=== PATIENT | male | born 1930 | race Hispanic/Latino ===

== ENCOUNTER 2018-12-01 17:44 | Emergency (ER) | payer MEDICARE ==
[~2018-12-01 17:44] MED LIST: ACET-2743 PO; ALBU8.5H8 IH; CILO100T PO; LEVO200T10 PO; LORA10TA7 PO; LORA1TAB3 PO; SIME125C92 PO; TAMS0.4C32 PO; TUMS PO
[2018-12-01 18:07] LABS: APPEARANCE,URINE Clear (CLEAR); BILIRUBIN,URINE Negative (NEGATIVE); COLOR,URINE Yellow (YELLOW); GLUCOSE, URINE (UA) >=1000 mg/dL (NEGATIVE); KETONES,URINE 15 mg/dL (NEGATIVE); LEUKOCYTE ESTERASE ,URINE Negative (NEGATIVE); NITRATE,URINE Negative (NEGATIVE); OCCULT BLOOD,URINE Trace (NEGATIVE); PROTEIN,URINE Negative (NEGATIVE); UROBILINOGEN,URINE 0.2 mg/dL (0.2-1.0)
[2018-12-01 18:11] LABS: BASOPHILS % (AUTO) 0.3 % (0.0-5.0); EOSINOPHILS % (AUTO) 1.1 % (0.0-8.0); HEMATOCRIT 41.5 % (42-54); LYMPHOCYTES % (AUTO) 17.2 % (21.0-51.0); MEAN CORPUSCULAR HEMOGLOBIN 25.4 pg (27.0-33.0); MEAN CORPUSCULAR HGB CONC 32.3 g/dL (32.0-36.0); MEAN CORPUSCULAR VOLUME 78.5 fL (79-99); MONOCYTES % (AUTO) 6.3 % (3.0-13.0); NEUTROPHILS % (AUTO) 75.1 % (40.0-77.0); PLATELET COUNT (AUTO) 266 K/uL (130-400); RED BLOOD CELL COUNT(AUTO) 5.28 MIL/uL (4.50-6.20); RED CELL DISTRIBUTION WIDTH 15.9 % (11.0-15.5); WHITE BLOOD COUNT (AUTO) 9.7 K/uL (4.8-10.8)
[2018-12-01 18:18] LABS: CARBON DIOXIDE 28 mmol/L (21-32); CHLORIDE 102 mmol/L (101-111); CREATININE 0.8 mg/dL (0.5-1.5); GLOMERULAR FILTR. RATE CALC 97 mL/min (>60); GLUCOSE,RANDOM 187 mg/dL (70-105); POTASSIUM 3.4 mmol/L (3.5-5.1); SODIUM SERUM 140 mmol/L (136-145); UREA NITROGEN, BLOOD 20 mg/dL (7-18)
[2018-12-01 18:21] LABS: YEAST,URINE BUDDING Moderate /HPF (None Seen)
[2018-12-01 18:22] LABS: SQUAMOUS EPITHELIAL CELL,UR 0-2 /HPF (0-2)
[2018-12-01 18:23] LABS: ALANINE AMINOTRANSFERASE 15 U/L (12-78); ALBUMIN 3.5 g/dL (3.5-5.0); ASPARTATE AMINOTRANSFERASE 20 U/L (10-37); BILIRUBIN,DIRECT < 0.1 mg/dL (0.0-0.3); BILIRUBIN,TOTAL 0.2 mg/dL (0.2-1.0); LIPASE 141 U/L (114-286); TOTAL PROTEIN, SERUM 7.1 g/dL (6.0-8.3)
[2018-12-01 18:24] LABS: BACTERIA,URINE Few /HPF (None Seen)
[2018-12-01 18:25] LABS: MUCUS,URINE Rare LPF (None Seen)
[2018-12-01] MEDS ORDERED: LEVOFLOXACIN 500 MG/D5W 100 ML 100 ML ONE (19:35)
[2018-12-01] MEDS ORDERED: SODIUM CHLORIDE 0.9% 1000ML 1,000 ML IV ONE (19:35)
[2018-12-01] MEDS ORDERED: ONDANSETRON HCL 4 MG/2 ML VIAL ONE (20:25)
== END 2018-12-01 21:38 | disposition home or self-care (01) ==
LOC: EDH 17:44
DX: R30.0 Dysuria (principal); R35.0 Frequency of micturition; R33.9 Retention of urine, unspecified; E07.9 Disorder of thyroid, unspecified; E78.5 Hyperlipidemia, unspecified; E11.9 Type 2 diabetes mellitus without complications; Z87.891 Personal history of nicotine dependence; Z88.1 Allergy status to other antibiotic agents
CPT/HCPCS: 36415; 76770; 80048; 80076; 81001; 83690; 85025; 96365; 96375; 99283; J1956; J2405; J7030

== ENCOUNTER 2019-01-04 08:00 | Day surgery (SDC) | payer MEDICARE ==
[2019-01-04 08:15] VITALS: BP 88/43
[2019-01-04] MEDS ORDERED: SODIUM CHLORIDE 0.9% 1000ML 1,000 ML IV ONE (08:24)
[2019-01-04 08:46] LABS: INR 1.03 (0.85-1.15); PARTIAL THROMBOPLASTIN TIME 30.3 SEC (26.3-35.5); PROTHROMBIN TIME 10.8 SEC (9.6-11.6)
[2019-01-04] MEDS ORDERED: FENTANYL CITRATE PF 50 MCG/1 ML 2ML VIAL ONE (10:55)
[2019-01-04] MEDS ORDERED: LIDOCAINE HCL 1% 20 ML VIAL ONE (10:55)
[2019-01-04] MEDS ORDERED: MIDAZOLAM HCL 1 MG/ML 2ML VIAL ONE (10:56)
[2019-01-04 11:45] VITALS: BP 113/67
--- NOTE | 2019-01-04 11:45 | NUR ---
CT GD RT LUNG BX PATIENT SCHEDULED FOR LT LUNG BX. IMAGES REVIEWED BY DR Best GO AND PROCEDURE DISCUSSED WITH DR Bar MUSTAFA. BIOPSY SITE CHANGED TO RT SIDED LUNG BIOPSY AND APPROVED BY DR Bar MUSTAFA. PROCEDURE PERFORMED BY DR Best GO. PUNCTURE SITE RT POSTERIOR BACK AND PATIENT TOLERATED PROCEDURE WELL. UNABLE TO OBTAIN SPECIMENS AFTER THREE ATTEMPTS. THE PATIENT'S BREATHING PATTERN MADE IT DIFFICULT TO PERFORM PROCEDURE. END OF PROCEDURE AT 1130. BIOPSY NEEDLE REMOVED AND DRESSING APPLIED. NO BLEEDING NOTED. REPORT GIVEN TO Best SHEN RN AND PATIENT TRANSPORTED TO [facility] PATIENT AT 1145. AAO X3 WITH NO C/O PAIN. DR Bar MUSTAFA NOTIED ABUT PROCEDURE OUTCOME BY DR Best GO.
[2019-01-04 12:15] VITALS: BP 91/51
[2019-01-04 12:45] VITALS: BP 115/54
[2019-01-04 13:15] VITALS: BP 105/59
== END 2019-01-04 13:20 | disposition home or self-care (01) ==
LOC: EDSTATUS 08:00 → DAH 08:00
PROVIDERS: ATTEND Internal Medicine Hematology & Oncology
DX: R22.43 Localized swelling, mass and lump, lower limb, bilateral (principal); Z85.850 Personal history of malignant neoplasm of thyroid; Z85.51 Personal history of malignant neoplasm of bladder; N40.1 Benign prostatic hyperplasia with lower urinary tract symptoms; E11.42 Type 2 diabetes mellitus with diabetic polyneuropathy; B96.81 Helicobacter pylori [H. pylori] as the cause of diseases classified elsewhere; Z79.899 Other long term (current) drug therapy; Z80.8 Family history of malignant neoplasm of other organs or systems; Z79.01 Long term (current) use of anticoagulants
CPT/HCPCS: 32405; 36415; 71045; 77012; 82948; 85610; 85730; A4606; J2250; J3010; J7030; 99152

== ENCOUNTER → 2019-07-17 | Outpatient (CLI) | payer MEDICARE | END | disposition home or self-care (01) | LOC: RAH 15:14 | PROVIDERS: ATTEND Internal Medicine Hematology & Oncology | DX: N20.0 Calculus of kidney (principal); N28.89 Other specified disorders of kidney and ureter | CPT/HCPCS: 76770 ==

== ENCOUNTER 2019-11-21 11:50 | Emergency (ER) | payer MEDICARE ==
[~2019-11-21 11:50] MED LIST changes: +BACL20TA PO; +ESOM20CA39 PO; +GUAI-487 PO; -LORA1TAB3 PO; +LORA2ORA5 PO; +MIDO2.5T PO; +MIRT-72 PO; +NPH,100V11 SQ
[2019-11-21] MEDS ORDERED: SODIUM CHLORIDE 0.9% 1000ML 1,000 ML IV ONE (12:30)
[2019-11-21] MEDS ORDERED: METHYLPREDNISOLONE SOD SUCC 125MG/2ML VIAL ONE (12:32)
[2019-11-21] MEDS ORDERED: METOCLOPRAMIDE 10 MG/2 ML VIAL ONE (12:32)
[2019-11-21 12:40] LABS: BASOPHILS % (AUTO) 0.4 % (0.0-5.0); EOSINOPHILS % (AUTO) 3.2 % (0.0-8.0); HEMATOCRIT 40.5 % (42-54); MEAN CORPUSCULAR HEMOGLOBIN 25.7 pg (27.0-33.0); MEAN CORPUSCULAR HGB CONC 31.1 g/dL (32.0-36.0); MEAN CORPUSCULAR VOLUME 82.5 fL (79-99); MONOCYTES % (AUTO) 6.4 % (3.0-13.0); NEUTROPHILS % (AUTO) 67.9 % (40.0-77.0); PLATELET COUNT (AUTO) 292 K/uL (130-400); RED BLOOD CELL COUNT(AUTO) 4.91 MIL/uL (4.50-6.20); RED CELL DISTRIBUTION WIDTH 15.5 % (11.0-15.5); WHITE BLOOD COUNT (AUTO) 6.9 K/uL (4.8-10.8)
[2019-11-21 12:52] LABS: CREATININE 0.9 mg/dL (0.5-1.5); POTASSIUM 3.6 mmol/L (3.5-5.1)
== END 2019-11-21 14:33 | disposition home or self-care (01) ==
LOC: EDH 11:50
DX: M54.81 Occipital neuralgia (principal); E11.9 Type 2 diabetes mellitus without complications; E78.5 Hyperlipidemia, unspecified; Z90.49 Acquired absence of other specified parts of digestive tract; Z88.1 Allergy status to other antibiotic agents; Z87.891 Personal history of nicotine dependence
CPT/HCPCS: 36415; 70450; 80048; 85025; 96374; 96375; 99285; J2765; J2930; J7030

== ENCOUNTER 2020-01-14 20:13 | Observation (INO) | payer MEDICARE ==
[~2020-01-14] VITALS: Ht 167 cm; Wt 79.4 kg
[2020-01-14 20:38] LABS: BASOPHILS % (AUTO) 0.5 % (0.0-5.0); EOSINOPHILS % (AUTO) 1.2 % (0.0-8.0); HEMATOCRIT 41.6 % (42-54); LYMPHOCYTES % (AUTO) 18.7 % (21.0-51.0); MEAN CORPUSCULAR HEMOGLOBIN 25.1 pg (27.0-33.0); MEAN CORPUSCULAR HGB CONC 31.5 g/dL (32.0-36.0); MEAN CORPUSCULAR VOLUME 79.8 fL (79-99); MONOCYTES % (AUTO) 9.1 % (3.0-13.0); NEUTROPHILS % (AUTO) 70.4 % (40.0-77.0); PLATELET COUNT (AUTO) 235 K/uL (130-400); RED BLOOD CELL COUNT(AUTO) 5.21 MIL/uL (4.50-6.20); RED CELL DISTRIBUTION WIDTH 14.8 % (11.0-15.5); WHITE BLOOD COUNT (AUTO) 7.8 K/uL (4.8-10.8)
[2020-01-14 20:44] LABS: CREATININE 0.8 mg/dL (0.5-1.5); POTASSIUM 3.1 mmol/L (3.5-5.1)
[2020-01-14 20:49] LABS: ALBUMIN 3.7 g/dL (3.5-5.0); BILIRUBIN,TOTAL 0.3 mg/dL (0.2-1.0); TOTAL PROTEIN, SERUM 7.7 g/dL (6.0-8.3)
[2020-01-14] MEDS ORDERED: IPRATROPIUM/ALBUTEROL SULFATE 3 ML SOLUTION IH ONE (21:13)
[2020-01-14 21:26] LABS: APPEARANCE,URINE Clear (CLEAR); BILIRUBIN,URINE Negative (NEGATIVE); COLOR,URINE Yellow (YELLOW); GLUCOSE, URINE (UA) Negative (NEGATIVE); KETONES,URINE Trace mg/dL (NEGATIVE); LEUKOCYTE ESTERASE ,URINE Negative (NEGATIVE); NITRATE,URINE Negative (NEGATIVE); OCCULT BLOOD,URINE Negative (NEGATIVE); PROTEIN,URINE Negative (NEGATIVE); UROBILINOGEN,URINE 0.2 mg/dL (0.2-1.0)
[2020-01-14] MEDS ORDERED: ONDANSETRON 4 MG TABLET ONE (23:42)
[2020-01-14] MEDS ORDERED: MAG HYDROX/AL HYDROX/SIMETH ES 30 ML SUSP UDCUP ONE (23:42)
[2020-01-14] MEDS ORDERED: LIDOCAINE HCL 2% VISCOUS 15 ML UDCUP ONE (23:42)
[2020-01-15] MEDS ORDERED: POTASSIUM BICARB/CIT AC 25 MEQ TABLET.EFF ONE (01:04)
[2020-01-15] MEDS ORDERED: ONDANSETRON HCL 4 MG/2 ML VIAL IVP PRN (06:45)
[2020-01-15] MEDS ORDERED: MORPHINE SULFATE 2 MG/ML 1ML SYG ONE (08:04)
[2020-01-15] MEDS ORDERED: SODIUM CHLORIDE 0.9% 1000ML 1,000 ML IV ONE (08:07)
--- NOTE | 2020-01-15 08:53 | NUR ---
HAD LARYNGEAL SURGERY USES A DEVICE TO SPEAK Addendum: 01/15/20 at 0906 by BERTHA MOREIRA RN RN Amended: Links added.
--- NOTE | 2020-01-15 08:56 | NUR ---
HX OF BLADDER AND LUNG CA AND LARYNGEAL Addendum: 01/15/20 at 0906 by BERTHA MOREIRA RN RN Amended: Links added.
[2020-01-15] MEDS: PANTOPRAZOLE 40 MG/VIAL IVP SCH (09:00)
[2020-01-15] MEDS ORDERED: VITA1CAP85 PO (09:16)
[2020-01-15] MEDS: SODIUM CHLORIDE 0.9% 1000ML 1,000 ML IV SCH (18:11)
[2020-01-15 20:00] VITALS: BP 151/92
[2020-01-15] MEDS ORDERED: LIDOCAINE HCL-MPF 1% 2ML VIAL IV PRN (21:00)
[2020-01-15] MEDS: POTASSIUM CHLORIDE 20MEQ/100ML 100 ML IV PRN (22:49)
[2020-01-16] VITALS: BP 153/87
[2020-01-16] MEDS: POTASSIUM CHLORIDE 20MEQ/100ML 100 ML IV PRN ×2 (02:08→06:17)
[2020-01-16 04:00] VITALS: BP 143/74
[2020-01-16 04:26] LABS: APPEARANCE,URINE Clear (CLEAR); BILIRUBIN,URINE Negative (NEGATIVE); COLOR,URINE Yellow (YELLOW); GLUCOSE, URINE (UA) Negative (NEGATIVE); KETONES,URINE 15 mg/dL (NEGATIVE); LEUKOCYTE ESTERASE ,URINE Negative (NEGATIVE); NITRATE,URINE Negative (NEGATIVE); OCCULT BLOOD,URINE Negative (NEGATIVE); PH,URINE 7.5 (5.0-8.0); PROTEIN,URINE Negative (NEGATIVE); UROBILINOGEN,URINE 0.2 mg/dL (0.2-1.0)
[2020-01-16] MEDS: MORPHINE SULFATE 2 MG/ML 1ML SYG IVP PRN ×2 (05:10→10:07)
[2020-01-16] MEDS: SODIUM CHLORIDE 0.9% 1000ML 1,000 ML IV SCH (05:13)
[2020-01-16 06:14] LABS: HEMATOCRIT 41.3 % (42-54); MEAN CORPUSCULAR HEMOGLOBIN 25.1 pg (27.0-33.0); PLATELET COUNT (AUTO) 211 K/uL (130-400); WHITE BLOOD COUNT (AUTO) 8.6 K/uL (4.8-10.8)
[2020-01-16 06:21] LABS: ALBUMIN 3.2 g/dL (3.5-5.0); BILIRUBIN,TOTAL 0.5 mg/dL (0.2-1.0); CREATININE 0.7 mg/dL (0.5-1.5); POTASSIUM 3.7 mmol/L (3.5-5.1); TOTAL PROTEIN, SERUM 6.9 g/dL (6.0-8.3)
[2020-01-16 08:00] VITALS: BP 102/68
[2020-01-16 08:23] LABS: EOSINOPHILS % (MANUAL) 1 % (1-6); LYMPHOCYTES % (MANUAL) 17 % (22-44); MAN.DIFF COMMENT-IMPRESSION MANUAL DIFFERENTIAL; MONOCYTES % (MANUAL) 3 % (2-9); PLATELET MORPHOLOGY COMMENT ADEQUATE; SEGMENTED NEUTROPHILS % 79 % (40-70)
[2020-01-16] MEDS: PANTOPRAZOLE 40 MG/VIAL IVP SCH (10:02)
[2020-01-16 12:00] VITALS: BP 134/75
== END 2020-01-16 17:35 | disposition home or self-care (01) ==
LOC: EDH 20:13 → EDHIP 01-15 04:48 → 3BH 01-15 15:48
PROVIDERS: ADMIT Internal Medicine Hematology & Oncology; ATTEND Internal Medicine Hematology & Oncology
DX: K80.20 Calculus of gallbladder without cholecystitis without obstruction (principal); K59.00 Constipation, unspecified; E11.42 Type 2 diabetes mellitus with diabetic polyneuropathy; E78.5 Hyperlipidemia, unspecified; E89.0 Postprocedural hypothyroidism; Z85.118 Personal history of other malignant neoplasm of bronchus and lung; Z85.51 Personal history of malignant neoplasm of bladder; Z85.850 Personal history of malignant neoplasm of thyroid
CPT/HCPCS: 36415 ×3; 71045; 76700; 78226; 80053 ×2; 81003 ×2; 82550; 82948 ×4; 83690; 83735; 83880; 84484; 85025 ×2; 87088; 87804 ×2; 93005; 94640; 96374; 96375; 96376; 99285; A9537; C9113 ×2; G0378 ×21; J3480 ×2; J3490; J7030; Q0162

== ENCOUNTER → 2020-11-27 | Outpatient (CLI) | payer MEDICARE ==
[~2020-11-27] MED LIST changes: +SIME-12 PO; -SIME125C92 PO; +VITA1CAP85 PO
== END | disposition home or self-care (01) ==
LOC: RAH 10:11
PROVIDERS: ATTEND Otolaryngology Plastic Surgery within the Head & Neck
DX: R13.10 Dysphagia, unspecified (principal); K21.9 Gastro-esophageal reflux disease without esophagitis
CPT/HCPCS: 74230; 92611

== ENCOUNTER 2020-12-03 06:38 | Day surgery (SDC) | payer MEDICARE ==
[~2020-12-03 06:38] MED LIST changes: +SODIUM CHLORIDE 0.9% 1000ML 1,000 ML IV ONE
[2020-12-03 07:35] VITALS: BP 131/61
[2020-12-03] MEDS ORDERED: URSO300C4 PO (08:09)
[2020-12-03] MEDS ORDERED: ESOM20CA39 PO (08:09)
[2020-12-03] MEDS ORDERED: PROPOFOL 10 MG/ML 20ML VIAL IV ONE (09:11)
[2020-12-03 10:15] VITALS: BP 101/46
[2020-12-03 10:20] VITALS: BP 103/47
[2020-12-03 10:25] VITALS: BP 108/53
[2020-12-03 10:30] VITALS: BP 118/55
[2020-12-03 11:00] VITALS: BP 107/50
== END 2020-12-03 11:00 | disposition home or self-care (01) ==
LOC: DAH 06:38 → ENDO 06:38
PROVIDERS: ATTEND Internal Medicine Gastroenterology
DX: R10.13 Epigastric pain (principal); R13.10 Dysphagia, unspecified; K29.50 Unspecified chronic gastritis without bleeding; K22.8 Other specified diseases of esophagus; R63.3 Feeding difficulties; K21.9 Gastro-esophageal reflux disease without esophagitis; N40.0 Benign prostatic hyperplasia without lower urinary tract symptoms; E11.9 Type 2 diabetes mellitus without complications; I45.10 Unspecified right bundle-branch block; Z85.850 Personal history of malignant neoplasm of thyroid; Z90.89 Acquired absence of other organs; Z98.890 Other specified postprocedural states; Z20.828 Contact with and (suspected) exposure to other viral communicable diseases; Z79.899 Other long term (current) drug therapy
CPT/HCPCS: 43239; 82948 ×2; 88305; 88342; 93005; A4215 ×2; A4221; A4222; A4223; A4606; A4657 ×2; A4663; A7002; C9803; J2704; J7030; U0003

== ENCOUNTER 2020-12-25 16:51 | Inpatient (IN) | payer MEDICARE ==
[~2020-12-25] VITALS: Ht 182.9 cm; Wt 89.4 kg
[~2020-12-25 16:51] MED LIST changes: -ALBU8.5H8 IH; -CILO100T PO; -GUAI-487 PO; -LORA10TA7 PO; -SIME-12 PO; -SODIUM CHLORIDE 0.9% 1000ML 1,000 ML IV ONE; -TUMS PO; +URSO300C4 PO
[2020-12-25 17:24] LABS: BASOPHILS % (AUTO) 0.4 % (0.0-5.0); EOSINOPHILS % (AUTO) 3.3 % (0.0-8.0); HEMATOCRIT 41.3 % (42-54); LYMPHOCYTES % (AUTO) 19.4 % (21.0-51.0); MEAN CORPUSCULAR HEMOGLOBIN 24.8 pg (27.0-33.0); MEAN CORPUSCULAR HGB CONC 30.8 g/dL (32.0-36.0); MEAN CORPUSCULAR VOLUME 80.7 fL (79-99); NEUTROPHILS % (AUTO) 69.6 % (40.0-77.0); PLATELET COUNT (AUTO) 293 K/uL (130-400); RED BLOOD CELL COUNT(AUTO) 5.12 MIL/uL (4.50-6.20); RED CELL DISTRIBUTION WIDTH 18.2 % (11.0-15.5); WHITE BLOOD COUNT (AUTO) 7.6 K/uL (4.8-10.8)
[2020-12-25 17:25] LABS: CREATININE 0.7 mg/dL (0.5-1.5); POTASSIUM 3.5 mmol/L (3.5-5.1)
[2020-12-25 17:30] LABS: ALBUMIN 3.1 g/dL (3.5-5.0); BILIRUBIN,TOTAL 0.4 mg/dL (0.2-1.0); TOTAL PROTEIN, SERUM 6.8 g/dL (6.0-8.3)
[2020-12-25] MEDS ORDERED: LORAZEPAM 1 MG TABLET ONE (21:23)
[2020-12-25] MEDS ORDERED: MIRTAZAPINE 15 MG TABLET ONE (21:23)
[2020-12-26 01:45] VITALS: BP 116/82
[2020-12-26] MEDS ORDERED: ACETAMINOPHEN 325 MG TAB PO PRN ×2 (02:00→02:15)
[2020-12-26] MEDS ORDERED: VANCOMYCIN PROTOCOL PER PHARMACY IV SCH (02:00)
[2020-12-26] MEDS ORDERED: DIPHENOXYLATE HCL/ATROPINE 2.5/0.025 MG TAB PO PRN ×2 (02:00→02:15)
[2020-12-26] MEDS ORDERED: LORAZEPAM 2 MG TABLET PO PRN ×2 (02:00→02:30)
[2020-12-26] MEDS ORDERED: ONDANSETRON 4MG INJ IVP PRN ×2 (02:00→02:15)
[2020-12-26] MEDS ORDERED: RENAL DOSE IV PRN (02:15)
[2020-12-26] MEDS ORDERED: LIDOCAINE HCL-MPF 1% 2ML VIAL IV PRN ×2 (02:15)
[2020-12-26] MEDS ORDERED: KCL 20 MEQ ERTAB PO PRN ×3 (02:15→02:30)
[2020-12-26] MEDS ORDERED: LIDOCAINE HCL-MPF 1% 2ML VIAL IJ PRN (02:15)
[2020-12-26] MEDS ORDERED: POTASSIUM CHLORIDE 10% ELIXIR 20 MEQ/15 ML UDCUP PO PRN ×3 (02:15→02:30)
[2020-12-26] MEDS ORDERED: POTASSIUM CHLORIDE 20MEQ/100ML 100 ML IV PRN ×5 (02:15→02:30)
[2020-12-26] MEDS ORDERED: POLYETHYLENE GLYCOL 3350 17 GM POWD.PACK PO PRN (02:15)
[2020-12-26] MEDS: IPRATROPIUM/ALBUTEROL SULFATE 3 ML SOLUTION IH PRN ×2 (02:42→06:28)
[2020-12-26] MEDS ORDERED: VANCOMYCIN 1GM+NS 250ML IV SCH (03:00)
[2020-12-26 04:04] VITALS: BP 145/58
[2020-12-26] MEDS ORDERED: LEVOTHYROXINE 25 MCG TABLET PO SCH ×4 (06:30→08:00)
[2020-12-26] MEDS ORDERED: LEVOTHYROXINE 112 MCG TABLET PO SCH ×2 (06:30)
[2020-12-26 07:00] VITALS: BP 145/73
[2020-12-26] MEDS ORDERED: LEVOTHYROXINE 125 MCG TABLET PO SCH (08:00)
[2020-12-26 08:42] LABS: ABG BASE EXCESS -0.3 mmol/L (-2.0-3.0); ABG HCO3 28.2 mmol/L (21.0-28.0); ABG OXYGEN SATURATION 88.7 % (95.0-99.0); ABG PCO2 63 mmHg (35-48)
[2020-12-26] MEDS ORDERED: BACLOFEN 10 MG TABLET PO SCH ×2 (09:00)
[2020-12-26] MEDS ORDERED: MIDODRINE HCL 5 MG TABLET PO SCH ×2 (09:00)
[2020-12-26] MEDS ORDERED: POLYETHYLENE GLYCOL 3350 17 GM POWD.PACK PO SCH (09:00)
[2020-12-26] MEDS ORDERED: TAMSULOSIN HCL 0.4 MG CAP.ER.24H PO SCH ×2 (21:00)
[2020-12-26] MEDS ORDERED: MIRTAZAPINE 15 MG TABLET PO SCH ×2 (21:00)
[2020-12-27] MEDS ORDERED: LEVOTHYROXINE 25 MCG TABLET PO SCH (08:00)
[2020-12-27] MEDS ORDERED: LEVOTHYROXINE 112 MCG TABLET PO SCH (08:00)
== END 2020-12-26 09:12 | disposition expired | DRG 602 ==
LOC: EDH 16:51 → EDHIP 16:52 → 3AH 12-26 01:16
PROVIDERS: ADMIT Internal Medicine Hematology & Oncology; ATTEND Internal Medicine Hematology & Oncology
PROC: 5A09357 Assistance with Respiratory Ventilation, Less than 24 Consecutive Hours, Continuous Positive Airway Pressure (ICD-10-PCS; principal; 2020-12-26)
PROC: 5A12012 Performance of Cardiac Output, Single, Manual (ICD-10-PCS; 2020-12-26)
DX: L03.116 Cellulitis of left lower limb (principal); J69.0 Pneumonitis due to inhalation of food and vomit; J90 Pleural effusion, not elsewhere classified; C78.00 Secondary malignant neoplasm of unspecified lung; L03.115 Cellulitis of right lower limb; I46.9 Cardiac arrest, cause unspecified; C67.9 Malignant neoplasm of bladder, unspecified; C76.0 Malignant neoplasm of head, face and neck; C73 Malignant neoplasm of thyroid gland; E03.9 Hypothyroidism, unspecified; E11.9 Type 2 diabetes mellitus without complications; E78.5 Hyperlipidemia, unspecified; Z92.3 Personal history of irradiation; Z93.0 Tracheostomy status; Z87.891 Personal history of nicotine dependence; Z88.8 Allergy status to other drugs, medicaments and biological substances
CPT/HCPCS: 36415; 36600; 71045; 80053; 82803; 82948; 85025; 87040; 92950; 94640; 94660; 94664; G0378; J3370